=== PATIENT | male | born 1985 | race Caucasian/White ===

== ENCOUNTER 2020-10-30 12:22 | Observation (INO) ==
[2020-10-30] MEDS ORDERED: Ondansetron 4 MG/2 ML VIAL IVP PRN ×4 (14:05→23:00)
[2020-10-30] MEDS ORDERED: MetroNIDAZOLE 500 MG/100 ML 500 MG/100 ML BAG IVPB SCH (14:07)
[2020-10-30] MEDS ORDERED: *HR* FentaNYL (PF) 100 MCG/2 ML VIAL IVP ONE (15:02)
[2020-10-30 15:04] LABS: Basophils % 0.4 %; Eosinophils # 0.2 K/mcL (0.0-0.6); Eosinophils % 5.9 %; Hematocrit 38.3 % (37.5-50.1); Hemoglobin 12.4 g/dL (12.9-16.9); Immature Platelets 5.1 % (1.1-6.1); Lymphocytes # 0.6 K/mcL (0.6-4.6); Mean Corpuscular HGB Conc 32.4 g/dL (31.6-35.5); Mean Corpuscular Hemoglobin 28.4 pg (28.0-33.3); Mean Corpuscular Volume 87.8 fL (83.0-100.0); Mean Platelet Volume 10.4 fL (9.4-12.4); Monocytes # 0.4 K/mcL (0.0-1.3); Monocytes % 12.9 %; Neutrophils # 1.6 K/mcL (1.6-8.9); Red Blood Count 4.36 M/mcL (4.19-5.50); Red Cell Distribution Width 13.7 % (11.5-14.5); Segmented Neutrophils % 59.8 %; White Blood Count 2.7 K/mcL (4.3-11.1)
[2020-10-30 15:05] LABS: Platelet Count 82 K/mcL (140-400)
[2020-10-30 15:06] LABS: BUN/Creatinine Ratio 14 (6-26); Blood Urea Nitrogen 9 mg/dL (6-20); Calcium 8.9 mg/dL (8.6-10.3); Carbon Dioxide 30 mEq/L (23-29); Chloride 102 mEq/L (98-107); Glucose 116 mg/dL (70-105); Osmolality,Calculated 282 (280-300); Potassium 3.8 mEq/L (3.5-5.1); Sodium 136 mEq/L (136-145); eGFR For African Americans > 60 (> 60); eGFR For Non-African Americans > 60 (> 60)
[2020-10-30] MEDS: 0.9 % Sodium Chloride 1,000 ML IVC SCH ×2 (15:53→23:39)
[2020-10-30 16:44] LABS: Influenza A PCR Negative (Negative); Influenza B PCR Negative (Negative); Resp. Syncytial Virus PCR Negative (Negative)
[2020-10-30 17:29] LABS: SARS-CoV-2 by PCR (In House) Negative (Negative)
[2020-10-30] MEDS: Acetaminophen IV 1,000 MG/100 ML BAG IVPB SCH ×2 (18:00→18:50)
[2020-10-30] MEDS ORDERED: *HR* Meperidine 25 MG/ML SYRINGE IVP PRN ×2 (18:43→23:00)
[2020-10-30] MEDS ORDERED: Ondansetron 4 MG/2 ML VIAL ONE (19:24)
[2020-10-30] MEDS ORDERED: *HR* Rocuronium Bromide 50 MG/5 ML VIAL ONE (19:24)
[2020-10-30] MEDS ORDERED: Lidocaine -MPF 2% 2 ML VIAL ONE (19:24)
[2020-10-30] MEDS ORDERED: *HR* FentaNYL (PF) 100 MCG/2 ML VIAL ONE (19:24)
[2020-10-30] MEDS ORDERED: Dexamethasone 4 MG/ML VIAL ONE (19:24)
[2020-10-30] MEDS ORDERED: *HR* Propofol 200 MG/20 ML VIAL IVP ONE (19:24)
[2020-10-30] MEDS ORDERED: Lidocaine HCL 4 ML Topical Solution (Laryng-O-Jet Kit Sterile Pak) TP ONE (19:24)
[2020-10-30] MEDS ORDERED: Lidocaine Jelly 6ml 1 APPL/6 ML JEL.PF.APP ONE (19:56)
[2020-10-30] MEDS ORDERED: CefOXitin 1,000 MG VIAL ONE (20:03)
[2020-10-30] MEDS ORDERED: Sugammadex Sodium 200 MG/2 ML VIAL IV ONE (20:36)
[2020-10-30] MEDS: *HR* HYDROmorphone PF 0.5 MG/0.5 ML SYRINGE IVP PRN ×3 (21:06→21:31)
[2020-10-30] MEDS ORDERED: *HR* HYDROmorphone PF 0.5 MG/0.5 ML SYRINGE IVP PRN (23:00)
[2020-10-30] MEDS: MetroNIDAZOLE 500 MG/100 ML 500 MG/100 ML BAG IVPB SCH (23:39)
[2020-10-31] MEDS: 0.9 % Sodium Chloride 1,000 ML IVC SCH ×2 (00:49→08:04)
[2020-10-31] MEDS: Acetaminophen IV 1,000 MG/100 ML BAG IVPB SCH ×2 (00:51→05:47)
[2020-10-31] MEDS: MetroNIDAZOLE 500 MG/100 ML 500 MG/100 ML BAG IVPB SCH (08:04)
[2020-10-31] MEDS ORDERED: Pantoprazole 40 MG VIAL IVP SCH ×2 (09:00)
[2020-10-31 23:36] VITALS: BP 144/91
== END 2020-10-31 12:59 | disposition home or self-care (01) ==
LOC: 3ANU
PROVIDERS: ADMIT Surgery; ATTEND Surgery

== ENCOUNTER 2020-11-20 11:35 | Observation (INO) ==
[2020-11-20 12:06] LABS: Basophils % 0.7 %; Immature Granulocytes % 0.4 % (0-4); Mean Platelet Volume 10.5 fL (9.4-12.4); Red Cell Distribution Width 13.7 % (11.5-14.5); White Blood Count 2.8 K/mcL (4.3-11.1)
[2020-11-20 12:08] LABS: Eosinophils # 0.2 K/mcL (0.0-0.6); Eosinophils % 5.4 %; Hematocrit 37.3 % (37.5-50.1); Hemoglobin 12.4 g/dL (12.9-16.9); Immature Platelets 4.7 % (1.1-6.1); Lymphocytes # 0.8 K/mcL (0.6-4.6); Lymphocytes % 28.5 %; Mean Corpuscular HGB Conc 33.2 g/dL (31.6-35.5); Mean Corpuscular Hemoglobin 28.5 pg (28.0-33.3); Mean Corpuscular Volume 85.7 fL (83.0-100.0); Monocytes # 0.4 K/mcL (0.0-1.3); Monocytes % 14.4 %; Neutrophils # 1.4 K/mcL (1.6-8.9); Red Blood Count 4.35 M/mcL (4.19-5.50); Segmented Neutrophils % 50.6 %
[2020-11-20 12:09] LABS: Platelet Count 82 K/mcL (140-400)
[2020-11-20 12:21] LABS: BUN/Creatinine Ratio 14 (6-26); Blood Urea Nitrogen 9 mg/dL (6-20); Calcium 9.1 mg/dL (8.6-10.3); Carbon Dioxide 26 mEq/L (23-29); Chloride 102 mEq/L (98-107); Glucose 84 mg/dL (70-105); Osmolality,Calculated 282 (280-300); Potassium 3.5 mEq/L (3.5-5.1); Sodium 137 mEq/L (136-145); eGFR For African Americans > 60 (> 60); eGFR For Non-African Americans > 60 (> 60)
[2020-11-20] MEDS ORDERED: Acetaminophen 325 MG TABLET PO PRN (13:12)
[2020-11-20] MEDS ORDERED: Naloxone 0.4 MG/ML INJ IVP PRN (13:12)
[2020-11-20] MEDS ORDERED: Ondansetron 4 MG/2 ML VIAL IVP PRN (13:12)
[2020-11-20 14:10] LABS: Adenovirus Not Detected (Not Detect); Bordetella Pertussis Not Detected (Not Detect); Chlamydophila pneumoniae Not Detected (Not Detect); Coronavirus 229E Not Detected (Not Detect); Coronavirus HKU1 Not Detected (Not Detect); Coronavirus NL63 Not Detected (Not Detect); Coronavirus OC43 Not Detected (Not Detect); Human Metapneumovirus Not Detected (Not Detect); Human Rhinovirus/Enterovirus Not Detected (Not Detect); Influenza A Subtype 2009 H1 Not Detected (Not Detect); Influenza B Not Detected (Not Detect); Mycoplasma pneumoniae Not Detected (Not Detect); Parainfluenza Virus 1 Not Detected (Not Detect); Parainfluenza Virus 2 Not Detected (Not Detect); Parainfluenza Virus 3 Not Detected (Not Detect); Parainfluenza Virus 4 Not Detected (Not Detect); Respiratory Syncytial Virus Not Detected (Not Detect); SARS-CoV-2 Not Detected (Not Detect)
[2020-11-20] MEDS ORDERED: Lidocaine -MPF 2% 2 ML VIAL ONE (16:09)
[2020-11-20] MEDS ORDERED: Simethicone 40 MG/0.6 ML MLS IR ONE (16:28)
[2020-11-20] MEDS ORDERED: *HR* Midazolam HCl 2 MG/2 ML VIAL ONE (16:30)
[2020-11-20] MEDS ORDERED: *HR* FentaNYL (PF) 100 MCG/2 ML VIAL ONE (16:30)
[2020-11-20] MEDS ORDERED: 0.9 % Sodium Chloride 1,000 ML IVC SCH (16:30)
[2020-11-20] MEDS ORDERED: *HR* Propofol 200 MG/20 ML VIAL IVP ONE (17:24)
[2020-11-20 19:39] VITALS: BP 143/95
[2020-11-20 20:04] LABS: Hematocrit 35.2 % (37.5-50.1); Hemoglobin 11.6 g/dL (12.9-16.9)
== END 2020-11-20 20:07 | disposition home or self-care (01) ==
LOC: EMEROOARM 11:35 → 3ANU 11:35
PROVIDERS: ADMIT Internal Medicine; ATTEND Internal Medicine